=== PATIENT | female | born 1980 | race Caucasian/White ===

== ENCOUNTER → 2016-10-17 | Outpatient (CLI) | payer BC ==
[2016-10-17 08:28] LABS: Basophils % (A) 1 %; CH 30.1; Eosinophils # (A) 0.3 k/uL (0-0.7); Eosinophils % (A) 3 %; HCT 41.5 % (34.0-46.0); HDW 2.69; Luc # (Auto) 0.15; Luc % (Auto) 2; Lymphocytes # (A) 2.3 k/uL (1.0-4.8); Lymphocytes % (A) 28 %; MCH 30.1 pg (25.0-35.0); MCHC 33.8 g/dL (31.0-37.0); Mean Platelet Volume 7.1; Monocytes # (A) 0.4 k/uL (0-1.0); Monocytes % (A) 5 %; Neutrophils # (A) 5.3 k/uL (1.3-7.7); Neutrophils % (A) 63 %; RBC 4.66 m/uL (3.80-5.40); RDW 12.2 % (11.5-15.5); WBC 8.4 k/uL (3.8-10.6)
== END | disposition home or self-care (01) ==
LOC: LABPAT 08:14
PROVIDERS: ATTEND Obstetrics & Gynecology
DX: Z01.812 Encounter for preprocedural laboratory examination (principal)
CPT/HCPCS: 85025

== ENCOUNTER 2016-10-25 06:14 | Day surgery (SDC) | payer BC ==
[2016-10-22 15:41] VITALS: BMI 41.8
[~2016-10-25 06:14] MED LIST: DEXAMETHASONE SOD PHOSPHATE 10 MG/ML 1 ML VIAL IV ONE; LACTATED RINGERS 1,000 ML IV SCH; LIDOCAINE 1% 20 ML VIAL (10MG/ML) FOR IV START INTRADERMA PRN; ONDANSETRON 4 MG/2 ML VIAL IVP ONE; Pre Op ABX Message 1 EACH MISC MISCELLANE ONE; SCOPOLAMINE 1.5MG/72HR PATCH TRANSDERM ONE
[2016-10-25 06:35] VITALS: RESP 16
--- NOTE | 2016-10-25 06:41 | P.HPOB ---
History of Present Illness H&P Date: 10/25/16 Chief Complaint: Family planning and pelvic pain Derian is a 36-year-old female who is completed her family planning and desires permanent sterilization. She is scheduled for laparoscopic tubal occlusion. She has a history however of pelvic pain and there is some concern that she may have endometriosis. During the process procedure will plan to evaluate for endometriosis as well and if any lesions or present likely do fulguration. Risks/benefits/alternatives were discussed with patient in detail and all questions are answered for her prior to proceeding to the operating room these risks did include but were not limited to damage to bladder, damage to bowel, vascular injuries, nerve injuries, bleeding, infection or ureteral injury. Past Medical History Past Medical History: Asthma History of Any Multi-Drug Resistant Organisms: None Reported Past Surgical History: Adenoidectomy, Section, Cholecystectomy, Tonsillectomy Past Anesthesia/Blood Transfusion Reactions: No Reported Reaction Past Psychological History: No Psychological Hx Reported Smoking Status: Current every day smoker Past Alcohol Use History: None Reported Additional Past Alcohol Use History / Comment(s): HAS BEEN SMOKING SINCE 2006- SMOKES <1/2 PPD Past Drug Use History: None Reported - Past Family History Mother Family Medical History: Cancer Medications and Allergies Home Medications Medication Instructions Recorded Confirmed Type Albuterol Inhaler [Ventolin Hfa 1 inh INHALATION DIRECTED 01/19/15 10/25/16 History Inhaler] Allergies Allergy/AdvReac Type Severity Reaction Status Date / Time No Known Allergies Allergy Verified 10/25/16 06:35 Exam Osteopathic Statement: *. No significant issues noted on an osteopathic structural exam other than those noted in the History and Physical/Consult. - Vital Signs Vital signs: Vital Signs Temp Pulse Resp BP Pulse Ox 10/25/16 06:33 98.9 F 87 16 110/68 95
[2016-10-25] MEDS: MIDAZOLAM 2 MG/2 ML VIAL IV PRN ×3 (06:54→08:51)
[2016-10-25] MEDS ORDERED: ALBUTEROL INHALER 60 PUFF/8 GM INHALER INHALATION ONE (07:30)
[2016-10-25] MEDS ORDERED: NEOSTIGMINE 1 MG/ML 10 ML VIAL ONE (07:30)
[2016-10-25] MEDS ORDERED: VECURONIUM 10 MG VIAL IV ONE (07:30)
[2016-10-25] MEDS ORDERED: LIDOCAINE 1% INJ 10MG/ML (20 ML MDV) ONE (07:30)
[2016-10-25] MEDS ORDERED: GLYCOPYRROLATE 0.2 MG/ML 2 ML VIAL ONE (07:30)
[2016-10-25] MEDS ORDERED: MIDAZOLAM 2 MG/2 ML VIAL ONE (07:30)
[2016-10-25] MEDS ORDERED: KETOROLAC 30 MG/ML 1 ML VIAL ONE (07:30)
[2016-10-25] MEDS ORDERED: fentaNYL (PF) 50 MCG/ML 2 ML AMP ONE (07:30)
[2016-10-25] MEDS ORDERED: SUCCINYLCHOLINE CHLORIDE 100 MG/5 ML SYR IV ONE (07:30)
[2016-10-25] MEDS ORDERED: PROPOFOL 10 MG/ML 20 ML VIAL IV ONE (07:30)
[2016-10-25] MEDS ORDERED: BUPIVACAINE (PF) 0.25% 30 ML VIAL SQ ONE ×2 (07:48)
--- NOTE | 2016-10-25 08:14 | P.OP ---
Date of Procedure: 10/25/16 Preoperative Diagnosis: Family planning Postoperative Diagnosis: Same Procedure(s) Performed: Laparoscopic tubal ligation with Filshie clips Anesthesia: KIMMY Surgeon: Sawyer Khan Estimated Blood Loss (ml): 5 Urine output (ml): 20 Pathology: none sent Condition: stable Disposition: same day Operative Findings: Normal uterus tubes and ovaries are noted. There is no evidence of endometriosis in the pelvis posterior cul-de-sac is free from disease. Description of Procedure: To the operating suite where a general anesthetic found be adequate. She was prepped and draped in the normal sterile fashion and placed in dorsal lithotomy position. Initially a speculum was inserted in the vagina and into lip cervix was identified grasped single-toothed tenaculum. Uterus was then sounded to 9 cm and a kroner manipulator was inserted without difficulty. Red rubber catheter was then used to drain the bladder of urine and other incidents removed. Gloves were then changed and attention was turned to abdominal portion procedure where approximately 3 mL of quarter percent Marcaine were injected periumbilically. Through this injected anesthetic a 5 mm skin incision was made and through this incision under direct visualization with an optical trocar and sleeve the camera was inserted. Once peritoneal placement was assured gas left fully slick the abdomen and patient's placement steep Trendelenburg position. Second 8 mm skin incision was then made 3 cm above the pubic symphysis in the midline and through this incision under direct visualization a second port and sleeve were inserted. Observations pelvis were noted. There was one small omental adhesion this did not appear to be causing problems and was left alone. Uterus was then elevated and camera was directed toward the posterior cul-de-sac. No abnormalities or endometriosis lesions were noted. The remainder the pelvis was unremarkable. This clip was then applied 3 cm from uterine cornu on both the right and left tube. Seeing no bleeding from the mesosalpinx instruments were removed and gas was allowed allowed to expel from the abdomen. 5 deep breaths were provided during this process. Ports were then removed and 4-0 Vicryl was used to close incision subcuticularly. The remaining 7 mL of quarter percent Marcaine were then injected around the incisions. Instruments were removed from the vagina sponge , lap, needle counts were all correct 2 and patient was taken to the recovery room in stable and satisfactory condition. Plan - Discharge Summary New Discharge Prescriptions: Acetaminophen-Codeine 300-30mg [Tylenol #3] 1 tab PO Q4H PRN #30 tablet PRN Reason: Pain Ibuprofen [Motrin] 600 mg PO Q6HR PRN #30 tab PRN Reason: Pain Discharge Medication List Albuterol Inhaler [Ventolin Hfa Inhaler] 1 inh INHALATION DIRECTED 01/19/15 [ History] Acetaminophen-Codeine 300-30mg [Tylenol #3] 1 tab PO Q4H PRN #30 tablet [Rx] Ibuprofen [Motrin] 600 mg PO Q6HR PRN #30 tab 10/25/16 [Rx] Follow up Appointment(s)/Referral(s): Sawyer Khan DO [Doctor of Osteopathic Medicine] - 2 Weeks Activity/Diet/Wound Care/Special Instructions: No heavy lifting, limit stairs and driving and pelvic rest today. Call for any high temperatures, heavy bleeding or severe pain.
[2016-10-25] MEDS: HYDROmorphone 1 MG/ML 1 ML SYRINGE IVP PRN ×4 (08:20→08:36)
[2016-10-25 08:27] VITALS: TEMP 97.6
[2016-10-25] MEDS ORDERED: LACTATED RINGERS 1,000 ML IV ONE (09:00)
[2016-10-25] MEDS ORDERED: Acetaminophen-Codeine 300-30mg TAB PO ONE (09:53)
[2016-10-25 10:43] VITALS: BP 123/86; PULSE 72
== END 2016-10-25 10:50 | disposition home or self-care (01) ==
LOC: OR 06:14
PROVIDERS: ATTEND Obstetrics & Gynecology
DX: Z30.2 Encounter for sterilization (principal); K66.0 Peritoneal adhesions (postprocedural) (postinfection); J45.909 Unspecified asthma, uncomplicated; F17.200 Nicotine dependence, unspecified, uncomplicated
CPT/HCPCS: 81025; 58671; J2250; J1100; J2710; J2405; J2001; J3010; J1885; J1170; J0330; J2704

== ENCOUNTER → 2017-02-26 | Outpatient (CLI) | payer BC ==
--- NOTE | 2017-02-28 10:17 | USB ---
Reason for exam: clinical finding. History: Patient had first child at age 33. Family history of breast cancer in mother at age 49, breast cancer in maternal aunt at age 40, and breast cancer in maternal grandmother at age 50. Taking hormonal contraceptives for 1 year. Indicated problem(s): lump or thickening in the right breast. Physical Findings: Nurse Summary: Bilateral nodularity, prominent bilateral nodes in the axilla (nurse ts). US Breast RT Right breast ultrasound includes all four quadrants, the retroareolar region and axilla. Finding demonstrate no cystic or solid lesion seen. These results were verbally communicated with the patient and result sheet given to the patient on 02/26/17. ASSESSMENT: Negative, BI-RAD 1 RECOMMENDATION: Return to routine screening mammogram schedule for both breasts. Back on schedule March 2017. Manage patient on a clinical basis with regard to palpable abnormality.
== END | disposition home or self-care (01) ==
LOC: RADUSWWP 08:47
PROVIDERS: ATTEND Obstetrics & Gynecology
DX: N63 Unspecified lump in breast (principal)

== ENCOUNTER → 2019-05-12 | Outpatient (CLI) | payer BC ==
--- NOTE | 2019-05-12 08:56 | US ---
EXAMINATION TYPE: US abdomen complete DATE OF EXAM: 05/12/2019 COMPARISON: NONE CLINICAL HISTORY: R14.2 Eructation, K58.9 Irritable bowel syndrome. patient is uncomfortable after ea ting any kind of meal and gas increases, cholecystectomy EXAM MEASUREMENTS: Liver Length: 19.8 cm Gallbladder Wall: Surgically absent CBD: 0.5 cm Spleen: 14.7 cm Right Kidney: 12.3 x 5.0 x 5.3 cm Left Kidney: 12.8 x 4.3 x 6.1 cm *large body habitus and bowel gas limits exam Pancreas: wnl Liver: enlarged. There is increased echogenicity of the hepatic parenchyma with diminished visualiza tion of the portal triads most commonly relating to hepatic steatosis and limiting evaluation for und erlying hepatic masses. Gallbladder: Surgically absent Evidence for sonographic Rosario's sign: no CBD: wnl Spleen: enlarged Right Kidney: wnl Left Kidney: wnl Upper IVC: wnl Abd Aorta: limited views appear wnl The intrahepatic portion of the IVC and proximal abdominal aorta are within normal limits. Common anen marie e duct is unremarkable. The visualized portions of the pancreas are homogenous. The spleen is unrem arkable. Kidneys are symmetric and free of hydronephrosis. No renal lesions are seen. IMPRESSION: 1. Heterogenous echogenicity of the hepatic parenchyma diffusely most commonly related to hepatic catherine atosis. Correlate with liver function tests. 2. Incidentally noted splenomegaly.
== END | disposition home or self-care (01) ==
LOC: RADUSWWP 07:20
PROVIDERS: ATTEND Family Medicine
DX: K76.0 Fatty (change of) liver, not elsewhere classified (principal); R14.2 Eructation; K58.9 Irritable bowel syndrome, unspecified
CPT/HCPCS: 76700

== ENCOUNTER → 2019-12-14 | Outpatient (CLI) | payer BC ==
--- NOTE | 2019-12-14 10:26 | MM ---
Reason for exam: clinical finding. Last mammogram was performed 3 years and 8 months ago. History: Patient had first child at age 33. Family history of breast cancer in mother at age 49, breast cancer in maternal aunt at age 40, and breast cancer in maternal grandmother at age 50. Took hormonal contraceptives for 4 years beginning at age 31. Physical Findings: Nurse Summary: 1cm nodule in the left breast at 3 o'clock (nurse lazara). MG 3D Diag Mammo W/Cad NABILA Bilateral CC and MLO view(s) were taken. XCCL view(s) were taken of the left breast. Prior study comparison: April 04, 2016, bilateral MG 3d screening mammo w/cad. March 11, 2014, bilateral MG diagnostic mammo w CAD NABILA. There are scattered fibroglandular densities. Benign appearing bilateral calcifications. No suspicious abnormality. No significant new findings when compared with previous films. These results were verbally communicated with the patient and result sheet given to the patient on 12/14/19. ASSESSMENT: Incomplete: need additional imaging evaluation, BI-RAD 0 RECOMMENDATION: Ultrasound of the left breast. (palpable, site of prior abscess)
--- NOTE | 2019-12-14 10:29 | USB ---
Reason for exam: additional evaluation requested from abnormal screening. History: Patient had first child at age 33. Family history of breast cancer in mother at age 49, breast cancer in maternal aunt at age 40, and breast cancer in maternal grandmother at age 50. Took hormonal contraceptives for 4 years beginning at age 31. US Breast Limited LT Left limited breast ultrasound including focal area of concern, retroareolar and axilla demonstrates a 2.1 x 0.3 x 1.6cm oval lesion at 4 o'clock, superficial at BB, avascular, possible scar, if clinical growth repeat ultrasound or dermatology consult would be recommended and a 1.1cm oval lymph node at the axilla tail. These results were verbally communicated with the patient and result sheet given to the patient on 01/01/20. ASSESSMENT: Benign, BI-RAD 2 RECOMMENDATION: Routine screening mammogram of both breasts in 1 year. Manage patient on a clinical basis.
== END | disposition home or self-care (01) ==
LOC: RADMAMWWP 08:02
PROVIDERS: ATTEND Surgery
DX: N63.25 Unspecified lump in the left breast, overlapping quadrants (principal); R92.8 Other abnormal and inconclusive findings on diagnostic imaging of breast
CPT/HCPCS: 77062; 77066

== ENCOUNTER → 2020-05-03 | Outpatient (CLI) | payer BC ==
--- NOTE | 2020-05-03 19:12 | CT ---
EXAMINATION TYPE: CT brain wo con DATE OF EXAM: 05/03/2020 COMPARISON: None HISTORY: c/o headache X [address] DLP: 1210 mGycm. Automated Exposure Control for Dose Reduction was Utilized. TECHNIQUE: CT scan of the head is performed without contrast. FINDINGS: There is no acute intracranial hemorrhage, mass effect, or midline shift identified. The ventricles and sulci are within normal limits in size. Changes of chronic sinusitis are noted. Small CSF prominence adjacent to the posterior fossa and right cerebellum may represent a prominent cister na magna versus tiny arachnoid cyst. IMPRESSION: 1. No acute intracranial hemorrhage, mass effect, or midline shift is seen. 2. Prominent CSF space posterior fossa. A prominent cisterna magna versus small arachnoid cyst. MRI c orrelation could BE obtained as clinically warranted. 3. Changes of chronic sinusitis.
== END | disposition home or self-care (01) ==
LOC: RADCTMAIN 16:49
PROVIDERS: ATTEND Family Medicine
DX: R51 Headache (principal)
CPT/HCPCS: 70450

== ENCOUNTER → 2020-05-06 | Outpatient (CLI) | payer BC ==
--- NOTE | 2020-05-06 11:00 | MR ---
EXAMINATION TYPE: MR brain wo con DATE OF EXAM: 05/06/2020 COMPARISON: CT scan 05/03/2020 HISTORY: Severe headache x 2 weeks, Abnormal CT TECHNIQUE: T1-weighted sagittal, T2, FLAIR, and diffusion axial, and T2 coronal coronal views of the brain are submitted. FINDINGS: There is no evidence of acute ischemia. The ventricles, basal cisterns, and sulci overlying the conv exities are consistent with the patient's age. There is a small fluid collection adjacent to the rig ht cerebellar hemisphere measuring 1.6 x 1.1 cm. Findings stable from recent CT scan. Craniocervical junction maintained. Sella turcica has a normal appearance. There are 1 or 2 small les s than 5 mm areas nonspecific white matter change. No cerebellopontine angle mass. Changes of chronic sinusitis noted. IMPRESSION: 1. No acute intracranial process. 2. Chronic sinusitis most marked involving the ethmoid air cells. 3. There is a 1.6 cm fluid collection posterior fossa. Small arachnoid cyst in the differential diagn osis with no significant mass effect. 4. Minimal nonspecific white matter changes.
== END | disposition home or self-care (01) ==
LOC: RADMRIMAIN 09:10
PROVIDERS: ATTEND Family Medicine
DX: G93.0 Cerebral cysts (principal); R90.89 Other abnormal findings on diagnostic imaging of central nervous system
CPT/HCPCS: 70551

== ENCOUNTER → 2020-08-03 | Outpatient (CLI) | payer BC | END | disposition home or self-care (01) | LOC: LABWHC1 14:00 | PROVIDERS: ATTEND Family Medicine | DX: Z20.828 Contact with and (suspected) exposure to other viral communicable diseases (principal) | CPT/HCPCS: U0003; C9803 ==

== ENCOUNTER → 2020-10-19 | Outpatient (CLI) | payer BC | END | disposition home or self-care (01) | LOC: LABWHC1 14:40 | PROVIDERS: ATTEND Family Medicine | DX: Z20.828 Contact with and (suspected) exposure to other viral communicable diseases (principal) | CPT/HCPCS: U0003; C9803 ==

== ENCOUNTER 2021-02-13 22:45 | Emergency (ER) | payer BC ==
--- NOTE | 2021-02-13 23:37 | ED ---
Chest Pain HPI - General Chief Complaint: Chest Pain Stated Complaint: Chest Pain,SOB Time Seen by Provider: 02/13/21 23:34 Source: patient Mode of arrival: wheelchair Limitations: no limitations - History of Present Illness Initial Comments: This patient is a 40-year-old woman who presents to be evaluated for right upper chest pain. She states it had come on a few hours ago, after she had eaten. The patient thought that it may have been related to eating too fast. She thought that if she did her stomach she would feel better so she did induce an episode of vomiting at home. Following that she states that she coughed and there was a couple of streaks of blood associated. Between the chest pain and the blood she felt she should be evaluated here. The patient did not have any other chest symptoms or anginal symptoms. There was no diaphoresis, dyspnea, palpitations, lightheadedness or syncope. She is not having nausea or vomiting other than the self induced emesis. On review of systems, patient notes that she has had a little bit of wheezing and that her asthma IV flaring. MD Complaint: chest pain -: hour(s) Onset: after eating Pain Location: right chest Pain Radiation: none Severity: moderate Quality: sharp Consistency: intermittent Improves With: nothing Worsens With: inspiration Treatments Prior to Arrival: none - Related Data Home Medications Medication Instructions Recorded Confirmed Albuterol Inhaler (Mhu) [Ventolin 1 inh INHALATION DIRECTED 01/19/15 10/25/16 Hfa Inhaler (Mhu)] Previous Rx's Medication Instructions Recorded Acetaminophen-Codeine 300-30mg 1 tab PO Q4H PRN #30 tablet 10/25/16 [Tylenol #3] Ibuprofen [Motrin] 600 mg PO Q6HR PRN #30 tab 10/25/16 Ibuprofen 800 mg PO TID #20 tablet 02/14/21 predniSONE 60 mg PO DAILY #30 tab 02/14/21 Allergies Allergy/AdvReac Type Severity Reaction Status Date / Time No Known Allergies Allergy Verified 10/25/16 06:35 Review of Systems ROS Statement: Those systems with pertinent positive or pertinent negative responses have been documented in the HPI. ROS Other: All systems not noted in ROS Statement are negative. Constitutional: Denies: fever, chills ENT: Denies: throat pain Respiratory: Reports: cough, wheezes. Denies: dyspnea Cardiovascular: Reports: as per HPI, chest pain. Denies: palpitations, orthopnea, edema, syncope Gastrointestinal: Reports: as per HPI, vomiting. Denies: abdominal pain, nausea, diarrhea Skin: Denies: rash Neurological: Denies: headache, weakness, numbness EKG Findings - EKG Results: EKG: interpreted by FRANCISCO, sinus rhythm (With sinus arrhythmia, rate 95 bpm), normal axis, normal QRS, normal ST/T Past Medical History Past Medical History: No Reported History, GERD/Reflux History of Any Multi-Drug Resistant Organisms: None Reported Past Surgical History: Adenoidectomy, Section, Cholecystectomy, Tonsillectomy, Tubal Ligation Past Anesthesia/Blood Transfusion Reactions: No Reported Reaction Past Psychological History: Anxiety Smoking Status: Current every day smoker Past Alcohol Use History: None Reported Past Drug Use History: None Reported - Past Family History Mother Family Medical History: Cancer General Exam Limitations: no limitations General appearance: alert, in no apparent distress Head exam: Present: atraumatic, normocephalic Eye exam: Present: normal appearance. Absent: scleral icterus, conjunctival injection Neck exam: Present: normal inspection, full ROM Respiratory exam: Present: wheezes. Absent: respiratory distress, rales, rhonchi, stridor, chest wall tenderness, accessory muscle use Cardiovascular Exam: Present: regular rate, normal rhythm, normal heart sounds. Absent: systolic murmur, diastolic murmur, rubs, gallop GI/Abdominal exam: Present: soft. Absent: distended, tenderness, guarding, rebound, rigid, mass Extremities exam: Present: normal inspection, normal capillary refill. Absent: pedal edema, calf tenderness Back exam: Present: normal inspection. Absent: CVA tenderness (R), CVA tenderness (L) Neurological exam: Present: alert Skin exam: Present: warm, dry, intact, normal color. Absent: rash Course Vital Signs 02/13/21 02/14/21 02/14/21 22:48 00:29 00:39 Temperature 98.8 F Pulse Rate 105 H 84 83 Respiratory 22 Rate Blood Pressure 142/80 O2 Sat by Pulse 97 Oximetry 02/14/21 00:44 Temperature Pulse Rate 96 Respiratory 20 Rate Blood Pressure 130/69 O2 Sat by Pulse 98 Oximetry Disposition Clinical Impression: Pleurisy, Asthma exacerbation Disposition: HOME SELF-CARE Condition: Good Instructions (If sedation given, give patient instructions): Asthma (ED), Pleurisy (ED) Prescriptions: Ibuprofen 800 mg PO TID #20 tablet predniSONE 60 mg PO DAILY #30 tab Is patient prescribed a controlled substance at d/c from ED?: No Referrals: Jimy Pepe MD [Primary Care Provider] - 1-2 days
--- NOTE | 2021-02-13 23:48 | XR ---
EXAMINATION TYPE: XR chest 2V DATE OF EXAM: 02/13/2021 COMPARISON: NONE HISTORY: Dyspnea TECHNIQUE: 2 views FINDINGS: Heart and mediastinum are normal. Lungs are clear. Diaphragm is normal. Bony thorax appears normal. IMPRESSION: Normal chest.
[2021-02-14 00:05] LABS: Basophils # (A) 0.1 k/uL (0-0.2); Basophils % (A) 0 %; Eosinophils # (A) 1.5 k/uL (0-0.7); Eosinophils % (A) 10 %; HCT 39.2 % (34.0-46.0); HGB 13.7 gm/dL (11.4-16.0); Lymphocytes # (A) 2.3 k/uL (1.0-4.8); Lymphocytes % (A) 16 %; MCH 30.5 pg (25.0-35.0); MCV 87.1 fL (80.0-100.0); Mean Platelet Volume 7.1; Monocytes # (A) 0.5 k/uL (0-1.0); Monocytes % (A) 4 %; Neutrophils # (A) 9.6 k/uL (1.3-7.7); Neutrophils % (A) 69 %; Platelet Count 267 k/uL (150-450); RDW 12.6 % (11.5-15.5)
[2021-02-14 00:13] LABS: ALT 20 U/L (4-34); AST 20 U/L (14-36); African American GFR (CKD) >90 (>60 ml/min/1.73 sqM); Albumin 4.3 g/dL (3.5-5.0); Alkaline Phosphatase 79 U/L (38-126); Anion Gap 8 mmol/L; Blood Urea Nitrogen 15 mg/dL (7-17); Calcium 9.8 mg/dL (8.4-10.2); Carbon Dioxide 27 mmol/L (22-30); Chloride 105 mmol/L (98-107); Glucose 99 mg/dL (74-99); Lipase 315 U/L (23-300); Magnesium 2.1 mg/dL (1.6-2.3); Non-African American GFR(CKD) >90 (>60 ml/min/1.73 sqM); Sodium 140 mmol/L (137-145); Total Bilirubin 0.2 mg/dL (0.2-1.3); Total Protein 7.1 g/dL (6.3-8.2)
[2021-02-14] MEDS ORDERED: ALBUTEROL NEBULIZED 2.5 MG/3 ML INHALATION STA (00:15)
[2021-02-14 00:46] VITALS: RESP 20
[2021-02-14 00:46] LABS: D-Dimer 0.59 mg/L FEU (<0.60); INR 0.9 (<1.2); Prothrombin Time 9.6 sec (9.0-12.0)
[2021-02-14 01:05] LABS: Partial Thromboplastin Time 21.8 sec (22.0-30.0)
[2021-02-14 01:43] VITALS: BP 115/60; PULSE 94; TEMP 98.9
== END 2021-02-14 01:40 | disposition home or self-care (01) ==
LOC: EC 22:45
DX: J45.901 Unspecified asthma with (acute) exacerbation (principal); R09.1 Pleurisy; F17.200 Nicotine dependence, unspecified, uncomplicated; Z90.49 Acquired absence of other specified parts of digestive tract; Z90.09 Acquired absence of other part of head and neck; Z98.51 Tubal ligation status
CPT/HCPCS: 36415; 71046; 80053; 83690; 83735; 83880; 84484; 85025; 85379; 85610; 85730; 93005; 94640; 99285

== ENCOUNTER → 2021-02-28 | Outpatient (CLI) | payer BC ==
--- NOTE | 2021-02-28 12:31 | MM ---
Reason for exam: screening (asymptomatic). Last mammogram was performed 1 year and 3 months ago. History: Patient had first child at age 33. Family history of breast cancer in mother at age 49, breast cancer in maternal aunt at age 40, and breast cancer in maternal grandmother at age 50. Took hormonal contraceptives for 4 years beginning at age 31. Physical Findings: A clinical breast exam by your physician is recommended on an annual basis and results should be correlated with mammographic findings. MG 3D Screening Mammo W/Cad Bilateral CC, MLO, and XCCL view(s) were taken. Prior study comparison: December 14, 2019, bilateral MG 3d diag mammo w/cad NABILA. April 04, 2016, bilateral MG 3d screening mammo w/cad. The breast tissue is heterogeneously dense. This may lower the sensitivity of mammography. There are benign appearing round calcifications bilaterally. There is chronic nodularity in the right breast. There is no discrete abnormality. ASSESSMENT: Benign, BI-RAD 2 RECOMMENDATION: Routine screening mammogram of both breasts in 1 year.
== END | disposition home or self-care (01) ==
LOC: RADMAMWWP 07:13
PROVIDERS: ATTEND Obstetrics & Gynecology
DX: Z12.31 Encounter for screening mammogram for malignant neoplasm of breast (principal); Z80.3 Family history of malignant neoplasm of breast
CPT/HCPCS: 77063; 77067

== ENCOUNTER → 2022-05-11 | Outpatient (CLI) | payer BC ==
--- NOTE | 2022-05-14 18:48 | MM ---
Reason for Exam: Screening (asymptomatic). Last mammogram was performed 1 year(s) and 2 month(s) ago. Patient History: Menarche at age 14. First Full-Term at age 33. Late child-bearing (after 30). Patient has history of breast feeding. Hormonal Contraceptives for 4 years from age 31 until age 35. Maternal grandmother had breast cancer, age 50. Maternal aunt had breast cancer, age 40. Maternal aunt had breast cancer, age 51. Mother had breast cancer, age 49. Mother tested for BRCA1 outcome was negative. Last menstrual period: 04/29/2022 Risk Values: Shadia 5 year model risk: 1.2%. NCI Lifetime model risk: 19.1%. Prior Study Comparison: 04/04/2016 Bilateral Screening Mammogram, [facility]. 12/14/2019 Bilateral Diagnostic Mammogram, [facility]. 02/28/2021 Bilateral Screening Mammogram, [facility]. Tissue Density: There are scattered fibroglandular densities. Findings: Analyzed By CAD. Chronic nodularity on the right. Scattered benign bilateral calcifications. No significant change from prior exams. Overall Assessment: Benign, BI-RAD 2 Management: Screening Mammogram of both breasts in 1 year. 1. Patient should continue monthly self breast exams. 2. A clinical breast exam by your physician is recommended on an annual basis. 3. This exam should not preclude additional follow-up of suspicious palpable abnormalities. Electronically signed and approved by: Salima Ross M.D. Radiologist
== END | disposition home or self-care (01) ==
LOC: RADMAMWWP 13:20
PROVIDERS: ATTEND Family Medicine
DX: Z12.31 Encounter for screening mammogram for malignant neoplasm of breast (principal); Z80.3 Family history of malignant neoplasm of breast
CPT/HCPCS: 77063; 77067

== ENCOUNTER → 2023-05-28 | Outpatient (CLI) | payer BC ==
--- NOTE | 2023-05-29 13:15 | MM ---
Reason for Exam: Screening (asymptomatic). Last mammogram was performed 1 year(s) and 1 month(s) ago. Patient History: Menarche at age 14. First Full-Term at age 33. Late child-bearing (after 30). Patient has history of breast feeding. Hormonal Contraceptives for 4 years from age 31 until age 35. Maternal grandmother had breast cancer, age 50. Maternal aunt had breast cancer, age 40. Maternal aunt had breast cancer, age 51. Mother had breast cancer, age 49. Mother tested for BRCA1 outcome was negative. Last menstrual period: 04/27/2023 Risk Values: Shadia 5 year model risk: 1.3%. NCI Lifetime model risk: 18.9%. Prior Study Comparison: 12/14/2019 Bilateral Diagnostic Mammogram, [facility]. 02/28/2021 Bilateral Screening Mammogram, [facility]. 05/11/2022 Bilateral MG 3D screening mammo w/cad, [facility]. Tissue Density: There are scattered fibroglandular densities. Findings: Analyzed By CAD. Pattern appears symmetrical and stable. Multiple scattered benign round spherical calcifications are present bilaterally. No significant interval change is evident. Chronic nodularity is within the right breast. No suspicious groups of microcalcifications, spiculated or lobular masses, architectural distortion or other secondary signs of malignancy are mammographically apparent. Overall Assessment: Benign, BI-RAD 2 Management: Screening Mammogram of both breasts in 1 year. A negative mammogram report should not preclude additional follow up of suspicious palpable abnormalities. Patient should continue monthly self breast exam. A clinical breast exam by your physician is recommended on an annual basis and results should be correlated with mammographic findings. Electronically signed and approved by: Jemal Haddad D.O. Radiologis
== END | disposition home or self-care (01) ==
LOC: RADMAMWWP 08:02
PROVIDERS: ATTEND Family Medicine
DX: Z12.31 Encounter for screening mammogram for malignant neoplasm of breast (principal); Z80.3 Family history of malignant neoplasm of breast
CPT/HCPCS: 77063; 77067

== ENCOUNTER 2023-09-01 17:06 | Emergency (ER) | payer BC ==
[2023-09-01 17:32] VITALS: BP 134/86; PULSE 91; RESP 18; TEMP 97.4
[2023-09-01] MEDS ORDERED: SODIUM CHLORIDE 0.9% 1,000 ML IV ONE (17:33)
[2023-09-01] MEDS ORDERED: ONDANSETRON 4 MG/2 ML VIAL IVP STA (17:33)
[2023-09-01 18:24] LABS: Appearance,Urine Cloudy (Clear); Bilirubin,Urine Negative (Negative); Blood,Urine Negative (Negative); Color,Urine Yellow; Glucose,Urine (UA) Negative (Negative); Ketones,Urine 1+ (Negative); Leukocyte Esterase,Urine Negative (Negative); Mucus,Urine Many /hpf; Nitrite,Urine Negative (Negative); PH, Urine 5.5 (5.0-8.0); Protein,Urine Trace (Negative); RBC,Urine 1 /hpf (0-5); Specific Gravity,Urine 1.026 (1.001-1.035); Squamous Epithelial Cell,Urine 10 /hpf (0-4); Urobilinogen,Urine <2.0 mg/dL (<2.0); WBC,Urine 1 /hpf (0-5)
--- NOTE | 2023-09-01 18:39 | ED ---
Nausea/Vomiting/Diarrhea HPI - General Chief complaint: Nausea/Vomiting/Diarrhea Stated complaint: covid positive Time Seen by Provider: 09/01/23 17:19 Source: patient Mode of arrival: ambulatory Limitations: no limitations - History of Present Illness Initial comments: 43-year-old female presenting with chief complaint of nausea vomiting diarrhea. Symptoms started yesterday. Patient tested positive for Covid at home yesterday. No abdominal pain. No chest pain or difficulty breathing. No URI like symptoms. Admits to chills. No fever. No dysuria or hematuria. No hematochezia, melena, hematemesis. - Related Data Home Medications Medication Instructions Recorded Confirmed Albuterol Inhaler [Ventolin Hfa 1 inh INHALATION DIRECTED 01/19/15 10/25/16 Inhaler] Previous Rx's Medication Instructions Recorded Acetaminophen-Codeine 300-30mg 1 tab PO Q4H PRN #30 tablet 10/25/16 [Tylenol #3] Ibuprofen [Motrin] 600 mg PO Q6HR PRN #30 tab 10/25/16 Ibuprofen 800 mg PO TID #20 tablet 02/14/21 predniSONE 60 mg PO DAILY #30 tab 02/14/21 Allergies Allergy/AdvReac Type Severity Reaction Status Date / Time No Known Allergies Allergy Verified 09/01/23 17:15 Review of Systems ROS Statement: Those systems with pertinent positive or pertinent negative responses have been documented in the HPI. ROS Other: All systems not noted in ROS Statement are negative. Past Medical History Past Medical History: No Reported History, GERD/Reflux History of Any Multi-Drug Resistant Organisms: None Reported Past Surgical History: Adenoidectomy, Section, Cholecystectomy, Tonsillectomy, Tubal Ligation Additional Past Surgical History / Comment(s): L knee sx Past Anesthesia/Blood Transfusion Reactions: No Reported Reaction Past Psychological History: Anxiety Smoking Status: Current every day smoker Past Alcohol Use History: None Reported Past Drug Use History: Marijuana - Past Family History Mother Family Medical History: Cancer General Exam Limitations: no limitations General appearance: alert, in no apparent distress Head exam: Present: atraumatic, normocephalic, normal inspection Eye exam: Present: normal appearance, EOMI Neck exam: Present: normal inspection, full ROM Respiratory exam: Present: normal lung sounds bilaterally. Absent: respiratory distress, wheezes, rales, rhonchi, stridor Cardiovascular Exam: Present: regular rate, normal rhythm, normal heart sounds. Absent: systolic murmur, diastolic murmur, rubs, gallop, clicks GI/Abdominal exam: Present: soft. Absent: distended, tenderness, guarding, rebound, rigid Neurological exam: Present: alert, oriented X3 Psychiatric exam: Present: normal affect, normal mood Skin exam: Present: warm, dry, intact, normal color. Absent: rash Course Vital Signs 09/01/23 17:11 Temperature 97.4 F L Pulse Rate 91 Respiratory 18 Rate Blood Pressure 134/86 O2 Sat by Pulse 97 Oximetry Medical Decision Making - Medical Decision Making Was pt. sent in by a medical professional or institution (, PA, CARTON FORMING MACHINE ADJUSTER, urgent care, hospital, or care home...) When possible be specific @ -No Did you speak to anyone other than the patient for history (EMS, parent, family, police, friend...)? What history was obtained from this source @ -No Did you review nursing and triage notes (agree or disagree)? Why? @ -I reviewed and agree with nursing and triage notes Were old charts reviewed (outside hosp., previous admission, EMS record, old EKG, old radiological studies, urgent care reports/EKG's, care home records)? Report findings @ -No old charts were reviewed Differential Diagnosis (chest pain, altered mental status, abdominal pain women, abdominal pain men, vaginal bleeding, weakness, fever, dyspnea, syncope, headache, dizziness, GI bleed, back pain, seizure, CVA, palpatations, mental health, musculoskeletal)? @ -Differential includes Covid, other viral gastroenteritis, UTI, this is not an all inclusive list EKG interpreted by me (3pts min.). @ -As above X-rays interpreted by me (1pt min.). @ -None done CT interpreted by me (1pt min.). @ -None done U/S interpreted by me (1pt. min.). @ -None done What testing was considered but not performed or refused? (CT, X-rays, U/S, labs)? Why? @ -None What meds were considered but not given or refused? Why? @ -Zofran and fluid bolus were ordered, however the patient left AMA prior to receiving her medications Did you discuss the management of the patient with other professionals (professionals i.e. , PA, CARTON FORMING MACHINE ADJUSTER, lab, RT, psych nurse, health and social care teacher, metal wire technician, teacher, driver license reviewing officer, case management coordinator)? Give summary @ -No Was smoking cessation discussed for >3mins.? @ -No Was critical care preformed (if so, how long)? @ -No Were there social determinants of health that impacted care today? How? (Home lessness, low income, unemployed, alcoholism, drug addiction, transportation, low edu. Level, literacy, decrease access to med. care, penitentiary, rehab)? @ -No Was there de-escalation of care discussed even if they declined (Discuss DNR or withdrawal of care, Hospice)? DNR status @ -No What co-morbidities impacted this encounter? (DM, HTN, Smoking, COPD, CAD, Cancer, CVA, ARF, Chemo, Hep., AIDS, mental health diagnosis, sleep apnea, morbid obesity)? @ -None Was patient admitted / discharged? Hospital course, mention meds given and route, prescriptions, significant lab abnormalities, going to OR and other pertinent info. @ -43-year-old female who tested positive for Covid at home yesterday presenting with chief complaint of nausea vomiting and diarrhea since yesterday. History and physical exam were conducted. Urine shows no infectious process or bleeding. I'm told that the patient became disgruntled and eloped from the ER prior to receiving Zofran and fluids. My attending is Dr. Jason Undiagnosed new problem with uncertain prognosis? @ -No Drug Therapy requiring intensive monitoring for toxicity (Heparin, Nitro, Insulin, Cardizem)? @ -No Were any procedures done? @ -No Diagnosis/symptom? @ -Covid Acute, or Chronic, or Acute on Chronic? @ -Acute Uncomplicated (without systemic symptoms) or Complicated (systemic symptoms)? @ -Uncomplicated Side effects of treatment? @ -No Exacerbation, Progression, or Severe Exacerbation? @ -No Poses a threat to life or bodily function? How? (Chest pain, USA, CT, pneumonia, PE, COPD, DKA, ARF, appy, cholecystitis, CVA, Diverticulitis, Homicidal, Suicidal, threat to staff... and all critical care pts) @ -No - Lab Data Lab Results 09/01/23 Range/Units 17:51 Urine Color Yellow Urine Appearance Cloudy H (Clear) Urine pH 5.5 (5.0-8.0) Ur Specific [place] 1.026 (1.001-1.035) Urine Protein Trace H (Negative) Urine Glucose (UA) Negative (Negative) Urine Ketones 1+ H (Negative) Urine Blood Negative (Negative) Urine Nitrite Negative (Negative) Urine Bilirubin Negative (Negative) Urine Urobilinogen <2.0 (<2.0) mg/dL Ur Leukocyte Esterase Negative (Negative) Urine RBC 1 (0-5) /hpf Urine WBC 1 (0-5) /hpf Ur Squamous Epith Cells 10 H (0-4) /hpf Urine Mucus Many H (None) /hpf Disposition Clinical Impression: COVID Disposition: LEFT AGAINST MEDICAL ADVICE Condition: Undetermined Referrals: Jimy Pepe MD [Primary Care Provider] - 1-2 days Time of Disposition: 18:39
== END 2023-09-01 18:41 | disposition left against medical advice (07) ==
LOC: EC 17:06
DX: U07.1 COVID-19 (principal); F17.200 Nicotine dependence, unspecified, uncomplicated; F12.90 Cannabis use, unspecified, uncomplicated; Z86.59 Personal history of other mental and behavioral disorders; Z53.29 Procedure and treatment not carried out because of patient's decision for other reasons
CPT/HCPCS: 81001; 99284

== ENCOUNTER → 2024-07-17 | Outpatient (CLI) | payer BC ==
--- NOTE | 2024-07-17 10:47 | MM ---
Reason for Exam: Screening (asymptomatic). Last mammogram was performed 1 year(s) and 2 month(s) ago. Patient History: Menarche at age 14. First Full-Term at age 33. Late child-bearing (after 30). Patient has history of breast feeding. Hormonal Contraceptives for 4 years from age 31 until age 35. Maternal grandmother had breast cancer, age 50. Maternal aunt had breast cancer, age 40. Maternal aunt had breast cancer, age 51. Mother had breast cancer, age 49. Mother tested for BRCA1 outcome was negative. Risk Values: Shadia 5 year model risk: 1.4%. NCI Lifetime model risk: 18.8%. Prior Study Comparison: 02/28/2021 Bilateral Screening Mammogram, [facility]. 05/11/2022 Bilateral MG 3D screening mammo w/cad, [facility]. 05/28/2023 Bilateral MG 3D screening mammo w/cad, [facility]. Tissue Density: There are scattered areas of fibroglandular density. Findings: Analyzed By CAD. Right breast: There is no suspicious group of microcalcifications or new suspicious mass. Left breast: There is no suspicious group of microcalcifications or new suspicious mass. Overall Assessment: Negative, BI-RAD 1 Management: Screening Mammogram of both breasts in [address] [facility] will attempt to contact patient to return for supplemental views and ultrasound if indicated. Patient should continue monthly self-breast exams. A clinical breast exam by your physician is recommended on an annual basis. This exam should not preclude additional follow-up of suspicious palpable abnormalities. Note on Shadia scores and lifetime risk: 1. A Shadia score greater than 3% is considered moderate risk. If this is the case, consider specialist referral to assess eligibility for a risk reducing agent. 2. If overall lifetime risk for the development of breast cancer is 20% or higher, the patient may qualify for future screening with alternating mammogram and breast MRI. [facility], , 07/17/2024 10:44 AM. Electronically signed and approved by: Conrad Cordoba DO
== END | disposition home or self-care (01) ==
LOC: RADMAMWWP 07:09
PROVIDERS: ATTEND Family Medicine
DX: Z12.31 Encounter for screening mammogram for malignant neoplasm of breast
CPT/HCPCS: 77063; 77067